=== PATIENT | male | born 1975 ===

== ENCOUNTER 2017-04-05 13:11 | Emergency (ER) | payer OTHER ==
[2017-04-05 13:47] VITALS: BMI 27.3
[2017-04-05 13:51] VITALS: RESP 18; TEMP 98.9; O2SAT 98
--- NOTE | 2017-04-05 14:03 | ED PDOC ---
Arrival/HPI - General Chief Complaint: Abdominal Pain Time Seen by Provider: 04/05/17 13:52 Historian: Patient - History of Present Illness Time/Duration: Other (5 days) Symptom Onset: Gradual Symptom Course: Worsening Severity Level: Mild Activities at Onset: Rest Associated Symptoms (Text): 04/05/17 14:00 Patient is status post appendectomy approximately 3 weeks ago at another hospital. For the last 5 days he has had a mild bloody discharge from the periumbilical trocar wound. Minimal pain. Refusing pain medication. No purulent discharge. The other wounds are clean and dry. No nausea vomiting or diarrhea. No fever or chills. No injury or trauma. Past Medical History - Infectious Disease Hx of Infectious Diseases: None - Tetanus Immunization Tetanus Immunization: Unknown - Past Medical History Past Medical History: No Previous - Cardiac Hx Cardiac Disorders: No - Pulmonary Hx Respiratory Disorders: No - Neurological Hx Neurological Disorder: No - HEENT Hx HEENT Disorder: No - Renal Hx Renal Disorder: No - Endocrine/Metabolic Hx Endocrine Disorders: No - Hematological/Oncological Hx Blood Disorders: No - Integumentary Hx Dermatological Disorder: No - Musculoskeletal/Rheumatological Hx Musculoskeletal Disorders: Yes Hx Back Pain: Yes - Gastrointestinal Hx Gastrointestinal Disorders: No - Genitourinary/Gynecological Hx Genitourinary Disorders: No - Psychiatric Hx Psychophysiologic Disorder: No Hx Depression: No Hx Emotional Abuse: No Hx Physical Abuse: No Hx Substance Use: No - Past Surgical History Past Surgical History: No Previous - Surgical History Hx Appendectomy: Yes Other/Comment: left groin hernia. - Anesthesia Hx Anesthesia: Yes Hx Anesthesia Reactions: No Hx Malignant Hyperthermia: No - Suicidal Assessment Feels Threatened In Home Enviroment: No Family/Social History - Physician Review Nursing Documentation Reviewed: Yes Family/Social History: Unknown Family HX Smoking Status: Heavy Smoker > 10 Cigarettes Daily Hx Alcohol Use: No Hx Substance Use: No Allergies/Home Meds Allergies/Adverse Reactions: Allergies No Known Allergies Allergy (Verified 04/05/17 13:52) Review of Systems - Physician Review All systems were reviewed & negative as marked: Yes - Review of Systems Constitutional: Normal Respiratory: Normal Cardiovascular: Normal Gastrointestinal: Normal. absent: Abdominal Pain, Constipation, Diarrhea, Nausea, Vomiting, Anorexia Genitourinary Male: absent: Dysuria, Frequency, Hematuria Neurological: Normal Physical Exam Vital Signs Temp Pulse Resp BP Pulse Ox 04/05/17 14:10 89 18 121/61 98 04/05/17 13:47 98.9 F 93 H 18 122/63 98 Temperature: Afebrile Blood Pressure: Normal Pulse: Regular Respiratory Rate: Normal Appearance: Positive for: Well-Appearing, Non-Toxic, Comfortable Pain Distress: None Mental Status: Positive for: Alert and Oriented X 3 - Systems Exam Head: Present: Atraumatic, Normocephalic Pupils: Present: PERRL Extroacular Muscles: Present: EOMI Conjunctiva: Present: Normal Neck: Present: Normal Range of Motion Respiratory/Chest: Present: Clear to Auscultation, Good Air Exchange. No: Respiratory Distress, Accessory Muscle Use Cardiovascular: Present: Regular Rate and Rhythm, Normal S1, S2. No: Murmurs Abdomen: Present: Normal Bowel Sounds, Scars (Periumbilical trocar has minimal bloody drainage and no pus appreciated). No: Tenderness, Distention, Peritoneal Signs, Rebound, Guarding Back: Present: Normal Inspection Upper Extremity: Present: Normal Inspection. No: Cyanosis, Edema Lower Extremity: Present: Normal Inspection. No: Edema Neurological: Present: GCS=15, CN II-XII Intact, Speech Normal, Motor Func Grossly Intact Skin: Present: Warm, Dry, Normal Color, Other (As above). No: Rashes Psychiatric: Present: Alert, Oriented x 3, Normal Insight, Normal Concentration Medical Decision Making ED Course and Treatment: 04/05/17 15:46 Blood work is unrevealing. CT scan is read by the radiologist shows no evidence of abscess. Will be treated as a superficial wound infection. Follow-up with PMD. Follow up in ER as needed. - Lab Interpretations Lab Results: 04/05/17 14:32 04/05/17 14:32 Lab Results 04/05/17 14:32: Sodium 142, Potassium 3.8, Chloride 103, Carbon Dioxide 28, Anion Gap 15, BUN 18, Creatinine 0.9, Est GFR ( Amer) > 60, Est GFR (Non- Af Amer) > 60, Random Glucose 145 H, Calcium 9.3, Total Bilirubin 0.5, AST 24, ALT 35, Alkaline Phosphatase 66, Total Protein 6.5, Albumin 4.0, Globulin 2.5, Albumin/Globulin Ratio 1.6, Lipase 57 04/05/17 14:32: PT 10.7, INR 0.99, APTT 28.2 04/05/17 14:32: WBC 9.8, RBC 4.72, Hgb 14.1, Hct 42.8, MCV 90.7, MCH 29.9, MCHC 32.9, RDW 12.5, Plt Count 200, MPV 10.6, Gran % 60.6, Lymph % (Auto) 28.2, [place] % (Auto) 6.1 H, Eos % (Auto) 4.7, Baso % (Auto) 0.4, Gran # 5.94, Lymph # 2.8, [place] # 0.6, Eos # 0.5, Baso # 0.04 - RAD Interpretation Radiology Orders: 04/05/17 13:59 ABD & PELVIS W/O PO OR IV CONT [CT] Stat Disposition/Present on Arrival - Present on Arrival Any Indicators Present on Arrival: No History of DVT/PE: No History of Uncontrolled Diabetes: No Urinary Catheter: No History of Decub. Ulcer: No History Surgical Site Infection Following: None - Disposition Have Diagnosis and Disposition been Completed?: Yes Diagnosis: Wound infection after surgery Disposition: HOME/ ROUTINE Disposition Time: 15:47 Patient Plan: Discharge Condition: GOOD Discharge Instructions (ExitCare): Cellulitis (ED) Prescriptions: Amoxicillin/Clavulanate [Augmentin 875 MG-125 MG] 1 tab PO Q12 #20 tab
--- NOTE | 2017-04-05 14:27 | CT ---
PROCEDURE: CT Abdomen and Pelvis without intravenous contrast HISTORY: S/P AP bloody umbilcal discharge COMPARISON: None. TECHNIQUE: Helical CT of the abdomen pelvis was performed without oral or intravenous contrast administered as per referring was crossed. The status post appendectomy with acute bloody umbilical discharge reported clinically. No prior comparison available. Contrast Dose: 0 cc Radiation dose: Total exam DLP = 600 mGy-cm. This CT exam was performed using one or more of the following dose reduction techniques: Automated exposure control, adjustment of the mA and/or kV according to patient size, and/or use of iterative reconstruction technique. FINDINGS: LOWER THORAX: Limited bilateral basilar dependent atelectasis identified. LIVER: Unremarkable. No gross lesion or ductal dilatation. GALLBLADDER AND BILE DUCTS: The gallbladder appears contracted. No definite pattern to suggest biliary tree dilatation though the lack of contrast limits the interpretation. . PANCREAS: Unremarkable. No gross lesion or ductal dilatation. SPLEEN: Unremarkable. ADRENALS: Unremarkable. No mass. KIDNEYS AND URETERS: A nonobstructing punctate intrarenal calculus is identified at the upper pole right kidney with not identified at the left. . No hydronephrosis. No solid mass. VASCULATURE: Unremarkable. No aortic aneurysm. BOWEL: Unremarkable. No obstruction. No gross mural thickening. Limited postop changes seen inferior to the cecum test was patient's reported prior appendectomy. No abscess or fluid collection is encountered either nevertheless. Moderate fecal loading is seen throughout the majority of the colon. There is no mesenteric edema or free intraperitoneal gas. APPENDIX: Surgically absent. PERITONEUM: Unremarkable. No free fluid. No free air. LYMPH NODES: Unremarkable. No enlarged lymph nodes. BLADDER: Unremarkable. REPRODUCTIVE: Unremarkable. BONES: No acute fracture. OTHER FINDINGS: There are no suspicious CT findings related to the anterior abdominal wall including the umbilical/periumbilical region. Stomach is distended with retained food. IMPRESSION: 1. Unremarkable anterior abdominal wall including the umbilical/periumbilical region. 2. Postop changes seen inferior to the cecum status post prior appendectomy, but there is no abscess fracture or gas or other fluid collection appreciated. 3. Nonobstructing, punctate intrarenal calculus upper pole right kidney.
[2017-04-05 15:37] LABS: BASO # 0.04 K/mm3 (0.0-2.0); BASO % 0.4 % (0.0-3.0); EOS # 0.5 (0.0-0.7); EOS % 4.7 % (1.5-5.0); GRAN # 5.94 (1.4-6.5); GRAN % 60.6 % (50.0-68.0); HEMOGLOBIN 14.1 gm/dL (14.0-18.0); LYMPH # 2.8 (1.2-3.4); LYMPH % 28.2 % (22.0-35.0); MEAN CELL VOLUME 90.7 fL (80.0-105.0); MEAN CORPUSCULAR HEMOGLOBIN 29.9 pg (25.0-35.0); MEAN CORPUSCULAR HGB CONC 32.9 g/dl (31.0-37.0); MEAN PLATELET VOLUME 10.6 fl (7.0-11.0); MONO # 0.6 (0.1-0.6); MONO % 6.1 % (1.0-6.0); PLATELET COUNT 200 10^3/uL (120.0-450.0); RBC 4.72 10^6/uL (3.5-6.1); RED CELL DISTRIBUTION WIDTH 12.5 % (11.5-14.5); WHITE BLOOD COUNT 9.8 10^3/ul (4.5-11.0)
[2017-04-05 15:38] LABS: ALB/GLOB RATIO 1.6 (1.1-1.8); ALT/SGPT 35 U/L (7-56); AST/SGOT 24 U/L (15-59); BLOOD UREA NITROGEN 18 mg/dL (7-21); CALCIUM 9.3 mg/dL (8.4-10.5); GFR AFRICAN-AMERICAN > 60; GFR NON-AFRICAN AMERICAN > 60; LIPASE 57 U/L (23-300)
[2017-04-05 15:41] LABS: INR 0.99 (0.93-1.08); PARTIAL THROMBOPLASTIN TIME 28.2 Seconds (23.7-30.8); PROTHROMBIN TIME 10.7 Seconds (9.9-11.8)
[2017-04-05 16:06] VITALS: BP 118/65; PULSE 79
== END 2017-04-05 16:08 | disposition home or self-care (01) ==
LOC: ED 13:11
DX: T81.4XXA Infection following a procedure, initial encounter (principal); Y83.8 Other surgical procedures as the cause of abnormal reaction of the patient, or of later complication, without mention of misadventure at the time of the procedure; Y92.89 Other specified places as the place of occurrence of the external cause

== ENCOUNTER 2017-04-12 19:12 | Emergency (ER) | payer OTHER ==
--- NOTE | 2017-04-12 19:37 | ED PDOC ---
Arrival/HPI <Yasmany Mera - Last Filed: 04/12/17 20:31> - General Historian: Patient <Pj Aguilera - Last Filed: 04/12/17 20:48> - General Time Seen by Provider: 04/12/17 19:29 - History of Present Illness Narrative History of Present Illness (Text): 04/12/17 19:30 41 y/o male, pmh including appendicitis, nkda, last tetanus under 5 years ago, c /o rt. hand thumb laceration x 2 hours. Pt. was cutting the metal, metal stud cut on the rt. hand thumb, was bleeding but controlled with the dressing, no numbness or tingling, no dizziness, no other medical or psychological complaints. (Pj Aguilera) Past Medical History - Provider Review Nursing Documentation Reviewed: Yes - Infectious Disease Hx of Infectious Diseases: None - Tetanus Immunization Tetanus Immunization: Unknown - Past Medical History Past Medical History: No Previous - Cardiac Hx Cardiac Disorders: No - Pulmonary Hx Respiratory Disorders: No - Neurological Hx Neurological Disorder: No - HEENT Hx HEENT Disorder: No - Renal Hx Renal Disorder: No - Endocrine/Metabolic Hx Endocrine Disorders: No - Hematological/Oncological Hx Blood Disorders: No - Integumentary Hx Dermatological Disorder: No - Musculoskeletal/Rheumatological Hx Musculoskeletal Disorders: Yes Hx Back Pain: Yes - Gastrointestinal Hx Gastrointestinal Disorders: No - Genitourinary/Gynecological Hx Genitourinary Disorders: No - Psychiatric Hx Psychophysiologic Disorder: No Hx Depression: No Hx Emotional Abuse: No Hx Physical Abuse: No Hx Substance Use: No - Past Surgical History Past Surgical History: No Previous - Surgical History Hx Appendectomy: Yes Other/Comment: left groin hernia. - Anesthesia Hx Anesthesia: Yes Hx Anesthesia Reactions: No Hx Malignant Hyperthermia: No - Suicidal Assessment Feels Threatened In Home Enviroment: No <Pj Aguilera - Last Filed: 04/12/17 20:48> Family/Social History - Physician Review Nursing Documentation Reviewed: Yes Family/Social History: Unknown Family HX Smoking Status: Heavy Smoker > 10 Cigarettes Daily Hx Alcohol Use: No Hx Substance Use: No <Pj Aguilera - Last Filed: 04/12/17 20:48> Allergies/Home Meds <Yasmany Mera - Last Filed: 04/12/17 20:31> <Pj Aguilera - Last Filed: 04/12/17 20:48> Allergies/Adverse Reactions: Allergies No Known Allergies Allergy (Verified 04/12/17 19:39) Review of Systems - Review of Systems Constitutional: absent: Fatigue, Fevers Eyes: absent: Vision Changes ENT: absent: Hearing Changes Respiratory: absent: SOB, Cough Cardiovascular: absent: Chest Pain Gastrointestinal: absent: Abdominal Pain, Nausea, Vomiting Skin: Laceration. absent: Rash, Pruritis, Skin Lesions, Abscess <Pj Aguilera - Last Filed: 04/12/17 20:48> Physical Exam - Systems Exam Head: Present: Atraumatic, Normocephalic Pupils: Present: PERRL Extroacular Muscles: Present: EOMI Conjunctiva: Present: Normal Neck: No: MIDLINE TENDERNESS Respiratory/Chest: Present: Clear to Auscultation, Good Air Exchange. No: Respiratory Distress, Accessory Muscle Use Cardiovascular: Present: Regular Rate and Rhythm, Normal S1, S2. No: Murmurs Abdomen: Present: Normal Bowel Sounds. No: Tenderness, Distention, Peritoneal Signs Upper Extremity: Present: Normal Inspection, Other (Rt. hand 1st digit thumb: dorsum aspect visible approx. 1.25cm superficial laceration no visible foreign bodies but there is perfusely bleeding, no deformity, FROM without limitation, sensation intact, motor 5/5, +radial pulse, capillary refill< 2 seconds, neurovscular intact. ). No: Cyanosis, Edema Neurological: Present: GCS=15, Speech Normal Skin: Present: Warm, Dry, Normal Color. No: Rashes Psychiatric: Present: Alert, Oriented x 3, Normal Insight, Normal Concentration <Pj Aguilera - Last Filed: 04/12/17 20:48> Vital Signs Temp Pulse Resp Pulse Ox 04/12/17 19:40 98.6 F 90 16 96 04/12/17 19:39 98.6 F 90 16 96 Medical Decision Making <Yasmany Mera - Last Filed: 04/12/17 20:31> <Pj Aguilera - Last Filed: 04/12/17 20:48> ED Course and Treatment: 04/12/17 19:38 -xray r/o foreign bodies -sensation intact, motor 5/5, wound irrigated with 1000cc of normal saline, clean with betadine, 2cc of lidocaine 1% digital block the injured thumb, sterile procedure, 5-0 prolene made 5 sutures, hemostasis obtained, bacitracin and gauze dressing, sensation intact, motor 5/5. -Discharge home with keflex, bacitracin oinment, take tylenol or motrin for pain , clean the wound twice daily, sutures need to be removed by day 10-12, avoid strenuous exercise or activity, follow up with your own pmd and hand specialist within 2 days, return to the ER for any new or worsening signs or symptoms. (Pj Aguilera) - RAD Interpretation Radiology Orders: 04/12/17 19:43 HAND RIGHT THUMB [RAD] Stat - Medication Orders Current Medication Orders: Discontinued Medications Lidocaine HCl (Lidocaine 1% (20ml)) 2 ml IJ STAT STA Stop: 04/12/17 19:43 Lidocaine HCl (Lidocaine 1% (20ml)) Confirm Administered Dose 20 ml .ROUTE .STK- MED ONE Stop: 04/12/17 19:46 - PA / [employer] / Resident Statement KASH has reviewed & agrees with the documentation as recorded. <Yasmany Mera - Last Filed: 04/12/17 20:31> - PA / [employer]PER[employer] / Resident Statement KASH has reviewed & agrees with the documentation as recorded. <Pj Aguilera - Last Filed: 04/12/17 20:48> Disposition/Present on Arrival <Yasmany Mera - Last Filed: 04/12/17 20:31> - Present on Arrival Any Indicators Present on Arrival: No History of DVT/PE: No History of Uncontrolled Diabetes: No Urinary Catheter: No History of Decub. Ulcer: No History Surgical Site Infection Following: None - Disposition Have Diagnosis and Disposition been Completed?: Yes Disposition Time: 19:41 Patient Plan: Discharge <Pj Aguilera - Last Filed: 04/12/17 20:48> - Disposition Diagnosis: Thumb laceration Disposition: HOME/ ROUTINE Patient Problems: Current Active Problems Problem Status Onset Thumb laceration Acute Condition: IMPROVED Additional Instructions: -Discharge home with keflex, bacitracin oinment, take tylenol or motrin for pain , clean the wound twice daily, sutures need to be removed by day 10-12, avoid strenuous exercise or activity, follow up with your own pmd and hand specialist within 2 days, return to the ER for any new or worsening signs or symptoms. Prescriptions: Bacitracin Ointment [Bacitracin] 1 appful TOP BID #15 g Cephalexin [Keflex] 500 mg PO TID #21 capsule Referrals: [facility] [place] [Outside] - Follow up with primary Ghazal Zuniga MD [Non-Staff] - Follow up with primary Nav Andrew MD [Staff Provider] - Follow up with primary Forms: WORK NOTE
[2017-04-12 19:40] VITALS: PULSE 90; RESP 16; TEMP 98.6; O2SAT 96; BMI 28.1
[2017-04-12] MEDS ORDERED: Lidocaine 1% Inj (20ml) IJ STA (19:42)
[2017-04-12] MEDS ORDERED: Lidocaine 1% Inj (20ml) ONE (19:45)
--- NOTE | 2017-04-13 07:52 | RAD ---
PROCEDURE: Right Thumb radiographs. HISTORY: rt. thumb laceration COMPARISON: None. TECHNIQUE: AP radiograph of the right hand, as well as spot oblique and lateral images of thumb were obtained. FINDINGS: RIGHT THUMB: Normal right thumb, without fracture or focal lesion. Remainder of the right hand (as seen on the AP view) grossly unremarkable. JOINTS: Normal. SOFT TISSUES: Normal. OTHER FINDINGS: None. IMPRESSION: Normal right thumb radiographs.
== END 2017-04-12 21:06 | disposition home or self-care (01) ==
LOC: ED 19:12
DX: S61.011A Laceration without foreign body of right thumb without damage to nail, initial encounter (principal); W45.8XXA Other foreign body or object entering through skin, initial encounter